=== PATIENT | female | born 1995 | race Asian ===

== ENCOUNTER 2022-03-03 13:39 | Emergency (ER) | payer BC ==
[~2022-03-03] VITALS: Ht 165.1 cm; Wt 52.3 kg
[2022-03-03] MEDS ORDERED: OXYC1TAB23 PO (16:58)
[2022-03-03 17:29] VITALS: BP 131/80
== END 2022-03-03 17:50 | disposition home or self-care (01) ==
LOC: M ED 13:39
DX: S82.141A Displaced bicondylar fracture of right tibia, initial encounter for closed fracture (principal); W22.8XXA Striking against or struck by other objects, initial encounter; Y92.828 Other wilderness area as the place of occurrence of the external cause